=== PATIENT | male | born 1995 | race Caucasian/White ===

== ENCOUNTER 2017-04-08 11:43 | Emergency (ER) | payer OTHER ==
[2017-04-08] MEDS ORDERED: IBUPROFEN 800 MG TABLET PO ONE (12:03)
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
[2017-04-08 13:14] VITALS: BP 122/73
== END 2017-04-08 13:16 | disposition home or self-care (01) ==
LOC: ER 11:43
DX: S43.402A Unspecified sprain of left shoulder joint, initial encounter (principal); S16.1XXA Strain of muscle, fascia and tendon at neck level, initial encounter; S39.012A Strain of muscle, fascia and tendon of lower back, initial encounter; V49.40XA Driver injured in collision with unspecified motor vehicles in traffic accident, initial encounter; M25.512 Pain in left shoulder; M54.2 Cervicalgia; M54.89 Other dorsalgia; F17.200 Nicotine dependence, unspecified, uncomplicated
CPT/HCPCS: 72070; 72110; 72125; 99284